=== PATIENT | female | born 1950 | race Caucasian/White ===

== ENCOUNTER 2024-02-04 19:22 | Emergency (ER) | payer MEDICARE, SELFPAY ==
[2024-02-04 19:24] VITALS: BP 164/104
[2024-02-04 20:35] LABS: Urine Albumin Negative (Neg - Trace); Urine Bilirubin Negative (Negative); Urine Character Clear (Clear); Urine Color Straw; Urine Glucose Negative (Negative); Urine Ketone Negative (Negative); Urine Leukocyte Negative (Negative); Urine Nitrite Negative (Negative); Urine Occult Blood Negative (Negative); Urine Urobilinogen Negative (Neg - 1+)
[2024-02-04] MEDS: XANAX 0.25 MG PO (21:35)
--- NOTE | 2024-02-04 22:49 | ED.GENMED ---
History of Present Illness
General
Chief Complaint: DVT/Possible Blood Clot
Source: family (Niece who is her hide mill worker)
Exam Limitations: non verbal-adult
Time Seen by Provider: 02/04/24 20:55
Nursing documentation reviewed up to this point in time: agreed with
Travel History
Have you had any contact with someone who has COVID-19?: No
Do you have any symptoms of coronavirus? Fever > 100 degrees, chills, cough, shortness of breath, sore throat, loss of taste or smell, muscle aches, or headache?: No
History of Present Illness
History of Present Illness:
73-year-old female with a past medical history of seizures and resultant brain injury who is nonverbal; she presents with her niece who is her hide mill worker for evaluation of right leg swelling. Patient cannot participate in history due to her baseline
developmental delays/brain injury. Her niece is at bedside and provides her history. Apparently niece noticed over the past 2 weeks that patient was limping right leg. It was thought to be related to severe arthritis in her right knee that was
confirmed on x-ray however over the past week or so knee started to notice some asymmetric swelling of the right leg particularly in the calf. Deisy says that she was researching the symptoms on the Internet and was concerned that they could be
related to a DVT and so she brought patient here to be evaluated. Aside from the limp patient has otherwise been acting normally. She was recently treated for UTI and niagustin is asking that we check urinalysis to ensure that the infection is
cleared. Niece has not noticed any fevers or chills. Patient has not exhibited any breathing issues. There were no falls or injuries that niagustin is aware of. No other issues today.
Review of Systems
Review of Systems
Unable to obtain full review of systems at this time due to: non-verbal
All Other Systems: Not applicable
Phy Exam
Physical Exam
Physical Exam:
General: Awake, alert; nonverbal but gestures with her hands to indicate certain things
Head: Normocephalic, atraumatic
Eyes: Conjunctiva normal
Throat: Airway intact, handling secretions
Neck: Trachea midline, supple without meningismus
Lungs: Clear to auscultation bilaterally, no wheezing, rales, rhonchi
Heart: Regular rate and rhythm, no murmurs, gallops, or rubs
Neuro: Moving all extremities equally with no gross motor or sensory deficits
Skin: no rash
Extremities: Patient has trace edema in the right calf when compared to the left, no significant warmth or erythema of the right lower extremity; she has a good strong DP pulse bilaterally; difficult to assess for tenderness�patient allows for
palpation and does not appear to be uncomfortable
Scores
Heart Failure Risk
Heart Failure Risk Score: Not Applicable
Heart Score for Chest Pain Patients
STEMI patient?: Not applicable
Withdrawal Assessment of Alcohol
Withdrawal Assessment Completed?: Not applicable
Course
Orders/Labs/Results
Orders:
Orders
02/04/24 20:29
Urinalysis Reflex To Culture Urgent
Date Specimen was Collected: 02/04/24
Time Specimen was Collected: 20:24
02/04/24 21:00
US Periph Venous LOWER Ext RT Urgent
Comment:
Reason For Exam: swelling
02/04/24 21:32
Alprazolam [Xanax] 0.25 mg PO NOW STA
02/04/24 22:25
Alprazolam [Xanax] 0.25 mg PO NOW STA
02/04/24 22:45
D-Dimer Urgent
02/04/24 23:36
Midazolam HCl [Versed] 2 mg IM NOW STA
Abnormal Lab Results
02/04/24
22:45
D-Dimer 0.55 H ug/mlFEU
(0.00-0.50)
Vital Signs
Initial and Last Documented VS:
Initial Vital Signs
Temp Pulse Resp BP Pulse Ox
36.8 C 116 24 164/104 96
02/04/24 19:24 02/04/24 19:24 02/04/24 19:24 02/04/24 19:24 02/04/24 19:24
Last Documented Vital Signs
Temp Pulse Resp BP Pulse Ox
36.8 C 116 24 164/104 96
02/04/24 19:24 02/04/24 19:24 02/04/24 19:24 02/04/24 19:24 02/04/24 19:24
MDM/Problems Addressed
Differential Diagnosis Includes:
Dependent edema, DVT, lymphedema
MDM/Problems Addressed:
73-year-old female presents with her niece who is her hide mill worker for evaluation of right lower leg swelling in the setting of recent limping from right knee arthritis. Hypertensive and tachycardic on arrival and patient is somewhat agitated�she does
not like to sit in the stretcher and only likes to sit in a chair. This is normal behavior according to her niece. Initial plan to rule out DVT with ultrasound but patient will not tolerate sitting in the bed; we did try to give her some Xanax to
calm her arm but she is unwilling to sit in the bed. Spoke with niece about options including sedation to obtain ultrasound versus evaluation with a D-dimer to screen for DVT and if negative including workup at that point�my clinical suspicion for
DVT is low; I suspect likely this is some dependent edema related to her recent gait adjustment as she has severe arthritis in the right knee. Niece prefers to start with D-dimer rather than sedating and I think this is the most reasonable plan.
D-dimer unfortunately was marginally positive and so we will need to proceed with ultrasound to rule out DVT. After discussion with niece will trial intramuscular Versed for some sedation to facilitate ultrasound.
Fortunately able to obtain ultrasound successfully after a dose of IM Versed. Ultrasound negative for DVT. Suspect likely dependent edema�spoke with niece about measures to minimize swelling. Patient still sleepy after IM Versed; will monitor
until more awake and plan for discharge.
Chronic conditions affecting care:
Brain injury
Acute Exacerbation and/or Progression of Chronic Illness:
Hypertensive
Acute Exacerbation and/or Progression of Chronic Illness: HTN
*Pulse Oximetry
Patient hypoxic: no
*Critical Care Note
Total Time (30-74mins, 75-104mins- exclusive of procedures): Not Applicable
Data Reviewed
Source: family and healthcare mark[employer]
ED Attending Note
-
Portions of this chart may have been created with voice recognition software.� Occasional wrong word or��sound alike� substitutions may have occurred due to the inherent limitations of voice recognition software.
Discharge Plan
Departure
Patient Disposition: Home (Routine Discharge)
Date of Disposition: 02/05/24
Time of Disposition: 00:23
Patient with high blood pressure during this ER visit?: Yes
Discharge Problem:
Dependent edema
Instructions: Swelling
Referrals:
Carlos Thao DO [Family Provider] - Follow up in 2-3 days
Activity Restrictions/Additional Instructions:
Thank you for visiting the Emergency Department at [facility].
1. Please schedule a follow up appointment as directed. Call first thing tomorrow morning to make an appointment.
2. If indicated, please take your medications as instructed and indicated on discharge paperwork.
3. If any of your symptoms do not improve, or persist, or become more severe within 6-12 hours, please return to the emergency department for further care.
4. Please return to the emergency department if you develop a headache, neck pain/stiffness, fever greater than 100.4F, chest pain, shortness of breath, persistent nausea, vomiting, slurred speech, difficulty walking, numbness/tingling, weakness,
signs of infection or any other symptoms that are worrisome to you.
Please call [phone] if you have any questions.
Interventions
Interventions:
*Risk Screen - Suicide Last Done: 02/04/24 19:24
*General Assessment Last Done: 02/04/24 20:15
*Neglect/Abuse Screening Last Done: 02/04/24 19:24
ED- Fall Risk Assessment Last Done: 02/04/24 20:15
*ED COVID-19 Vaccine History Last Done: 02/04/24 20:15
ED- Cardiac Assessment Last Done: 02/04/24 21:25
ED- Pulmonary Assessment Last Done: 02/04/24 21:25
ED-Peripheral Vascular Assessment Last Done: 02/04/24 21:25
ED-Skin Assessment Last Done: 02/04/24 21:25
Discharge Date and Time
Print Language: GEORGIAN
[2024-02-04 23:24] LABS: D-Dimer 0.55 ug/mlFEU (0.00-0.50)
[2024-02-04] MEDS: VERSED 2 MG IM (23:50)
[2024-02-05 00:28] VITALS: BP 91/56
[2024-02-05 00:53] VITALS: BP 131/73
[2024-02-05 01:46] VITALS: BP 125/73
== END 2024-02-05 01:47 | disposition home or self-care (01) ==
LOC: EMR 19:22
PROVIDERS: EMERGENCY PHYSICIAN Emergency Medicine; FAMILY PHYSICIAN Student in an Organized Health Care Education/Training Program
DX: R60.0 Localized edema (principal); I10 Essential (primary) hypertension; Z87.820 Personal history of traumatic brain injury
CPT/HCPCS: 99284; 96372; 81003; 85379; 93971

== ENCOUNTER 2025-02-02 09:29 | Emergency (ER) | payer MEDICARE, MEDICAID, SELFPAY ==
[2025-02-02 09:34] VITALS: BP 119/81
[2025-02-02 10:53] VITALS: BMI 19.7
[2025-02-02 11:05] VITALS: BP 115/77
--- NOTE | 2025-02-02 11:13 | EDRN ---
Dr. Maddox in room w/ pt at this time.
--- NOTE | 2025-02-02 11:21 | ED.GENMED ---
History of Present Illness
General
Chief Complaint: Dental Problem
Source: patient and family
Exam Limitations: none
Time Seen by Provider: 02/02/25 10:54
Nursing documentation reviewed up to this point in time: agreed with
History of Present Illness
History of Present Illness:
74-year-old female developmental delay accompanied by her family members who are the caregiver she is chronically poor dentition does not follow-up with a dentist unless she has an emergency, 1-2 days of swelling in her left lower jaw no fever
eating less, no vomiting denies pain no fevers
Past History
Past History
ED Past Medical History: Other (Developmental delay)
Social History
Tobacco: Non-smoker
Alcohol: None
Drug: None
Personal: Single
Living: with family
Employment: Not employed
Review of Systems
Review of Systems
All Other Systems: Not applicable
Constitutional: Denies fever or fatigue
EENT: Reports mouth swelling (Left lower jaw swelling); Denies mouth pain
Phy Exam
Physical Exam
Physical Exam:
Physical Exam
General: no apparent distress, not acutely ill
Neck: Diffuse carious teeth no palpable abscess no trismus mild redness over the left lower jaw externally the skin
Lungs: no acute respiratory distress.
Neuro: Special needs nonverbal follows commands
Skin: no rash
Psychiatric: cooperative
Extremities: no edema.
Course
Orders/Labs/Results
Orders:
Orders
02/02/25 11:18
Amoxicillin/Clavulanate Potass [Augmentin 250 mg/5 ml] 500 mg PO NOW STA
Vital Signs
Initial and Last Documented VS:
Initial Vital Signs
Temp Pulse Resp BP Pulse Ox
98.4 F 100 16 119/81 98
02/02/25 09:34 02/02/25 09:34 02/02/25 09:34 02/02/25 09:34 02/02/25 09:34
Last Documented Vital Signs
Temp Pulse Resp BP Pulse Ox
98.4 F 97 16 115/77 97
02/02/25 09:34 02/02/25 11:05 02/02/25 11:05 02/02/25 11:05 02/02/25 11:05
MDM/Problems Addressed
Differential Diagnosis Includes:
Caries abscess cellulitis
MDM/Problems Addressed:
Facial swelling
Chronic conditions affecting care:
Special needs, port into
Chronic conditions affecting care: Neurological disorder
Acute Exacerbation and/or Progression of Chronic Illness: Neurological disorder
*Pulse Oximetry
Patient hypoxic: no
Comment: 99
*Critical Care Note
Total Time (30-74mins, 75-104mins- exclusive of procedures): Not Applicable
Update Note
Update Note:
Update no obvious abscess no trismus no signs of rTamaine will start on antibiotics have her follow-up with PCP and dentist ER if worsening symptoms
ED Attending Note
-
Portions of this chart may have been created with voice recognition software.� Occasional wrong word or��sound alike� substitutions may have occurred due to the inherent limitations of voice recognition software.
Discharge Plan
Departure
Patient Disposition: Home (Routine Discharge)
Date of Disposition: 02/02/25
Time of Disposition: 11:19
Patient with high blood pressure during this ER visit?: No
Condition: Good
Discharge Problem:
Dental infection
Instructions: Tooth Abscess (DC), Tooth Decay, Adult (DC)
Prescriptions:
New
amoxicillin-pot clavulanate [Augmentin] 250-62.5 mg/5 mL suspension for reconstitution
10 ml PO Q8H 7 Days Qty: 210 0RF
Referrals:
Carlos Thao DO [Family Provider]
Activity Restrictions/Additional Instructions:
Have Ayan brush her teeth that she regularly does
Antibiotics as prescribed
Follow-up with her primary care provider and dentist
Return to the ER if worsening symptoms
Interventions
Interventions:
*Risk Screen - Suicide Last Done: 02/02/25 09:34
*General Assessment Last Done: 02/02/25 10:51
*Neglect/Abuse Screening Last Done: 02/02/25 09:34
*ED- Fall Risk Assessment Last Done: 02/02/25 10:51
*ED COVID-19 Vaccine History Last Done: 02/02/25 10:51
Discharge Date and Time
Print Language: ERITREAN
[2025-02-02] MEDS: AUGMENTIN 250 MG/5 ML 500 MG PO (11:47)
== END 2025-02-02 11:49 | disposition home or self-care (01) ==
LOC: EMR 09:29
PROVIDERS: EMERGENCY PHYSICIAN Emergency Medicine; FAMILY PHYSICIAN Student in an Organized Health Care Education/Training Program
DX: K04.7 Periapical abscess without sinus (principal); K02.9 Dental caries, unspecified; R22.0 Localized swelling, mass and lump, head; R56.9 Unspecified convulsions; M19.90 Unspecified osteoarthritis, unspecified site; R29.90 Unspecified symptoms and signs involving the nervous system
CPT/HCPCS: 99283